=== PATIENT | male | born 1995 | race Two or more races ===

== ENCOUNTER 2020-05-31 02:52 | Emergency (ER) | payer OTHER ==
[~2020-05-31] VITALS: Ht 177.8 cm; Wt 99.8 kg
[2020-05-31 02:55] VITALS: BP 137/87
[2020-05-31] MEDS ORDERED: CEFTRIAXONE 1 G VIAL ONE (03:16)
[2020-05-31] MEDS ORDERED: SULFAMETH/TRIMETH 800/160 MG 1 UDTAB TABLET ONE (03:16)
[2020-05-31] MEDS ORDERED: LIDOCAINE /MPF 1% VIAL 5 ML VIAL ONE (03:17)
--- NOTE | 2020-05-31 03:20 | NUR ---
TECH AT BEDSIDE WITH [employer]ING C[employer]TER
[2020-05-31] MEDS ORDERED: TDAP [DIPH/PERTUSSIS/TET] 0.5 ML VIAL IM ONE (03:22)
[2020-05-31] MEDS: CEFTRIAXONE 1 G VIAL IM ONE ×2 (03:27→03:29)
[2020-05-31] MEDS: SULFAMETH/TRIMETH 800/160 MG 1 UDTAB TABLET PO ONE ×2 (03:28→03:29)
[2020-05-31] MEDS: TDAP [DIPH/PERTUSSIS/TET] 0.5 ML VIAL IM ONE ×2 (03:28→03:29)
--- NOTE | 2020-05-31 03:56 | NUR ---
Patient discharged to PD in stable condition. Written and verbal after care instructions given. Patient verbalizes understanding of instruction. pt medically cleared for incarceration
== END 2020-05-31 04:15 ==
LOC: ER 02:54
DX: S62.613A Displaced fracture of proximal phalanx of left middle finger, initial encounter for closed fracture (principal); Z59.0 Homelessness; W45.8XXA Other foreign body or object entering through skin, initial encounter; Y93.89 Activity, other specified; Y92.89 Other specified places as the place of occurrence of the external cause; Y99.8 Other external cause status
CPT/HCPCS: 29130; 73130; 90471; 90715; 96372; 99284; J0696; J3490